=== PATIENT | female | born 1950 ===

== ENCOUNTER 2017-06-05 08:09 | Day surgery (SDC) | payer MEDICARE, OTHER ==
[2017-06-05] MEDS ORDERED: Lactated Ringer's 500 ML IV ONE (08:22)
[2017-06-05 09:15] VITALS: BMI 24.7
[2017-06-05 09:29] VITALS: TEMP 96.8
[2017-06-05] MEDS ORDERED: Propofol 10 mg/ml Inj (20 ML) ONE (10:42)
[2017-06-05 11:47] VITALS: BP 128/68; PULSE 58; RESP 16; O2SAT 99
== END 2017-06-05 13:18 | disposition home or self-care (01) ==
LOC: H.ENDO 08:09
PROVIDERS: ATTEND Internal Medicine Gastroenterology
DX: K30 Functional dyspepsia (principal); E03.9 Hypothyroidism, unspecified; E11.9 Type 2 diabetes mellitus without complications; I10 Essential (primary) hypertension; K21.0 Gastro-esophageal reflux disease with esophagitis; K44.9 Diaphragmatic hernia without obstruction or gangrene; K29.50 Unspecified chronic gastritis without bleeding
CPT/HCPCS: 43239; 88305; J2001; J2704; J3010; J7120